=== PATIENT | female | born 1985 | race Two or more races ===

== ENCOUNTER 2020-06-04 16:17 | Emergency (ER) | payer OTHER ==
[~2020-06-04] VITALS: Ht 175.3 cm; Wt 90.0 kg
[2020-06-04 16:54] VITALS: BP 136/75
--- NOTE | 2020-06-04 17:43 | PHYS DOC ---
Past Medical History Past Medical History: No Pertinent History (FAHAD MURPHY APRN) Past Surgical History: No Surgical History (FAHAD MURPHY APRN) Smoking Status: Never Smoker Alcohol Use: None (FAHAD MURPHY APRN) General Adult EDM: Chief Complaint: VAGINAL BLEEDING HPI: HPI: Patient is a 34 year old female 5 para 4, LMP 04/10/2020, had positive test at home last week, at 10:00 today started having right sided pelvic pain and vaginal bleeding she describes as pink spotting around 3:00 this afternoon. She reports continued right-sided pelvic pain, spotting has changed to more of a brown color. She denies any recent fevers or STD concerns. (FAHAD MURPHY APRN) Review of Systems: Review of Systems: Constitutional: Denies fever or chills. [] Eyes: Denies change in visual acuity. [] HENT: Denies nasal congestion or sore throat. [] Respiratory: Denies cough or shortness of breath. [] Cardiovascular: Denies chest pain or edema. [] GI: Denies abdominal pain, nausea, vomiting, bloody stools or diarrhea. [] : Denies dysuria. [] Musculoskeletal: Denies back pain or joint pain. [] Integument: Denies rash. [] Neurologic: Denies headache, focal weakness or sensory changes. [] Endocrine: Denies polyuria or polydipsia. [] Lymphatic: Denies swollen glands. [] Psychiatric: Denies depression or anxiety. [] (FAHAD MURPHY APRN) Heart Score: Risk Factors: Risk Factors: DM, Current or recent (<one month) smoker, HTN, HLP, family history of CAD, obesity. Risk Scores: Score 0 - 3: 2.5% MACE over next 6 weeks - Discharge Home Score 4 - 6: 20.3% MACE over next 6 weeks - Admit for Clinical Observation Score 7 - 10: 72.7% MACE over next 6 weeks - Early Invasive Strategies (FAHAD MURPHY APRN) Physical Exam: PE: Constitutional: Well developed, well nourished, no acute distress, non-toxic appearance. [] Neck: Normal range of motion, no tenderness, supple, no stridor. [] Cardiovascular:Heart rate regular rhythm, no murmur [] Lungs & Thorax: Bilateral breath sounds clear to auscultation [] Abdomen: Bowel sounds normal, soft, no tenderness, no masses, no pulsatile masses. [] Skin: Warm, dry, no erythema, no rash. [] Back: No tenderness, no CVA tenderness. [] Extremities: No tenderness, no cyanosis, no clubbing, ROM intact, no edema. [] Neurologic: Alert and oriented X 3, normal motor function, normal sensory function, no focal deficits noted. [] Psychologic: Affect normal, judgement normal, mood normal. : Brown discharge, right adnexal TTP, cervical office closed, no lesions [] (FAHAD MURPHY APRN) Current Patient Data: Labs: Laboratory Tests Test 06/04/20 16:45 06/04/20 16:59 06/04/20 17:35 Urine Collection Type Void Urine Color Yellow Urine Clarity Clear Urine pH 6.0 Urine Specific [place] 1.010 Urine Protein Negative mg/dL Urine Glucose (UA) Negative mg/dL Urine Ketones (Stick) Trace mg/dL Urine Blood Moderate Urine Nitrite Negative Urine Bilirubin Negative Urine Urobilinogen Dipstick 0.2 mg/dL Urine Leukocyte Esterase Negative Urine RBC 6-10 /HPF Urine WBC 1-4 /HPF Urine Squamous Epithelial Cells Few /LPF Urine Bacteria Few /HPF Bedside Urine HCG, Qualitative Hcg positive Maternal Serum HCG Beta Subunit 58835 mIU/mL Laboratory Tests Test 06/04/20 16:59 POC Urine HCG, Qualitative Hcg positive (Negative) Vital Signs: Vital Signs Date Time Temp Pulse Resp B/P (MAP) Pulse Ox O2 Delivery O2 Flow Rate FiO2 06/04/20 16:54 98.9 80 12 136/75 (95) 98 Room Air 98.9 (FAHAD MURPHY APRN) EKG: EKG: [] (FAHAD MURPHY APRN) Radiology/Procedures: Radiology/Procedures: [] Impression: PROCEDURE: OB TRANSVAG Study: US OB TRANSVAG DATE: 06/04/2020 5:33 PM INDICATION: Vaginal bleeding. Right adnexal pain. COMPARISON: None. TECHNIQUE: Transvaginal ultrasonography of the pelvis was performed. Color Doppler and duplex were utilized as appropriate. FINDINGS: The uterus is measured at 10 x 7.3 x 6.4 cm. Intrauterine gestational sac with an irregularly configured pole with a crown-rump length measured at 0.7 cm. There are thin septations traversing the gestational sac with an appearance possibly representing an expanded amnion sign. No heart tones were detected. No subchorionic hemorrhage. No uterine mass. The ovaries are within normal limits for size and maintain Doppler flow. No free fluid seen within the deep pelvis. IMPRESSION: 1. Intrauterine gestational sac with a pole that is irregular in morphology and without detectable heart tones. Additionally, there may be an expanded amnion sign which in conjunction with pole morphology and vaginal bleeding, is suspicious for a failed first trimester . Trending of the beta hCG and follow-up such as in 7-10 days is recommended to confirm. 2. Unremarkable ovaries. Electronically signed by: ZEE HUSTON MD (06/04/2020 7:12 PM) [id number] (FAHAD MURPHY APRN) Course & Med Decision Making: Course & Med Decision Making Pertinent Labs and Imaging studies reviewed. (See chart for details) [Discussed with patient possibility of impending miscarriage as there is an abnormal pole and no detected heart rate, importance of follow-up with OB in the next 2 to 3 days to trend hCG levels and follow-up ultrasound in the next 7 days. Blood type O+, patient is not a RhoGam candidate. Pelvic rest until followed up by OB. Return to ER for new or worsening symptoms.] (FAHAD MURPHY APRN) Dragon Disclaimer: Draglorraine Disclaimer: This electronic medical record was generated, in whole or in part, using a voice recognition dictation system. (FAHAD MURPHY APRN) Departure Departure Impression: Primary Impression: Abnormal in first trimester Disposition: 01 HOME, SELF-CARE Condition: STABLE Referrals: NO PCP (PCP) Patient Instructions: Threatened Miscarriage, [id number], Vaginal Bleeding D uring , First Trimester Additional Instructions: Follow-up with your OB doctor in the next 2 to 3 days, need repeat hCG levels and repeat ultrasound within 1 week. Justicifation of Admission Dx: Justifications for Admission: Justification of Admission Dx: N/A (FAHAD MURPHY APRN) Attending Signature Attending Signature I have participated in the care of this patient and I have reviewed and agree with all pertinent clinical information above including history, exam, and recommendations. (ALFRED DIANA DO) FAHAD MURPHY CHRISTMAS BELL RINGER Jun 04, 2020 17:43 ALFRED DIANA DO Jun 04, 2020 23:15
[2020-06-04 17:50] LABS: BILIRUBIN,URINE NEGATIVE (NEG); CLARITY,URINE CLEAR; COLOR,URINE YELLOW; NITRITE,URINE NEGATIVE (NEG); PROTEIN,URINE NEGATIVE (NEG-TRACE); UROBILINOGEN,URINE 0.2 mg/dL (0.2 mg/dL)
[2020-06-04 18:01] LABS: BACTERIA,URINE FEW /HPF (0-FEW); SQUAMOUS EPITHELIAL CELL,UR FEW /LPF
--- NOTE | 2020-06-04 19:15 | RAD ---
Study: US OB TRANSVAG DATE: 06/04/2020 5:33 PM INDICATION: Vaginal bleeding. Right adnexal pain. COMPARISON: None. TECHNIQUE: Transvaginal ultrasonography of the pelvis was performed. Color Doppler and duplex were utilized as appropriate. FINDINGS: The uterus is measured at 10 x 7.3 x 6.4 cm. Intrauterine gestational sac with an irregularly configured pole with a crown-rump length measured at 0.7 cm. There are thin septations traversing the gestational sac with an appearance possibly representing an expanded amnion sign. No heart tones were detected. No subchorionic hemorrhage. No uterine mass. The ovaries are within normal limits for size and maintain Doppler flow. No free fluid seen within the deep pelvis. IMPRESSION: 1. Intrauterine gestational sac with a pole that is irregular in morphology and without detectable heart tones. Additionally, there may be an expanded amnion sign which in conjunction with pole morphology and vaginal bleeding, is suspicious for a failed first trimester . Trending of the beta hCG and follow-up such as in 7-10 days is recommended to confirm. 2. Unremarkable ovaries. Electronically signed by: ZEE HUSTON MD (06/04/2020 7:12 PM) [id number]
== END 2020-06-04 19:45 | disposition home or self-care (01) ==
LOC: ER 16:17
DX: O46.91 Antepartum hemorrhage, unspecified, first trimester (principal); R10.2 Pelvic and perineal pain; Z3A.00 Weeks of gestation of pregnancy not specified
CPT/HCPCS: 36415; 76817; 81001; 81025; 84702; 86900; 86901; 99284